=== PATIENT | female | born 1985 | race Caucasian/White ===

== ENCOUNTER 2018-06-03 11:58 | Emergency (ER) | payer OTHER | END 2018-06-03 14:11 | disposition home or self-care (01) | LOC: M ED 11:58 | DX: S90.31XA Contusion of right foot, initial encounter (principal); S93.401A Sprain of unspecified ligament of right ankle, initial encounter; W10.8XXA Fall (on) (from) other stairs and steps, initial encounter; Y92.89 Other specified places as the place of occurrence of the external cause; Z88.2 Allergy status to sulfonamides; Z88.7 Allergy status to serum and vaccine | CPT/HCPCS: 73610 ==

== ENCOUNTER → 2019-01-13 | Outpatient (REF) | payer OTHER ==
[~2019-01-13] MED LIST: ASPI-255 PO
[2019-01-13 11:19] LABS: BASO % 0.4 % (0.0-1.0); EOS # 0.2 10^3/uL (0.0-0.50); EOS % 1.7 % (0.0-3.0); HEMATOCRIT 44.5 % (36.0-47.0); HEMOGLOBIN 13.9 g/dl (12.0-15.5); LYMPH # 2.9 10^3/uL (1.5-4.5); LYMPH % 26.4 % (24.0-44.0); MEAN CORPUSCULAR HEMOGLOBIN 26.3 pg (27.0-33.0); MEAN CORPUSCULAR HGB CONC 31.2 g/dl (32.0-36.5); MEAN CORPUSCULAR VOLUME 84.1 fl (80.0-96.0); MONO # 0.7 10^3/uL (0.0-0.8); MONO % 6.5 % (0.0-5.0); NEUTROPHILS % 64.4 % (36.0-66.0); PLATELET COUNT, AUTOMATED 432 10^3/uL (150-450); RED BLOOD COUNT 5.29 10^6/uL (4.00-5.40); WHITE BLOOD COUNT 10.9 10^3/uL (4.0-10.0)
[2019-01-13 11:49] LABS: FREE T4 1.04 NG/DL (0.76-1.46); THYROID STIMULATING HORMONE 2.62 uIU/ML (0.358-3.740)
[2019-01-13 11:51] LABS: ERYTHROCYTE SEDIMENTATION RATE 24 mm/hr (0-20)
[2019-01-14 15:03] LABS: ANTINUCLEAR ANTIBODIES DIRECT Negative (Negative)
== END ==
LOC: M SFHCLERA 09:14
PROVIDERS: ATTEND Nurse Practitioner Family
DX: R21 Rash and other nonspecific skin eruption (principal); R53.82 Chronic fatigue, unspecified

== ENCOUNTER → 2019-01-22 | Outpatient (REF) | payer OTHER ==
[2019-01-22 11:21] LABS: ALBUMIN 3.5 GM/DL (3.2-5.2); ALT/SGPT 21 U/L (12-78); BILIRUBIN,TOTAL 0.7 MG/DL (0.2-1.0); BLOOD UREA NITROGEN 16 MG/DL (7-18); CALCIUM LEVEL 8.8 MG/DL (8.5-10.1); CARBON DIOXIDE LEVEL 27 MEQ/L (21-32); CHLORIDE LEVEL 106 MEQ/L (98-107); CREATININE FOR GFR 0.81 MG/DL (0.55-1.30); GLOMERULAR FILTRATION RATE > 60.0 (>60); GLUCOSE, FASTING 82 MG/DL (70-100); POTASSIUM SERUM 4.3 MEQ/L (3.5-5.1); RHEUMATOID FACTOR QUANT < 10.0 IU/ML (<15.0); SODIUM LEVEL 140 MEQ/L (136-145); TOTAL PROTEIN 7.2 GM/DL (6.4-8.2)
[2019-01-25 00:07] LABS: ANTI RIBOSOMAL ANTIBODIES <0.2 AI (0.0-0.9); CYCLIC CITRULLINATED PEPTIDE 6 units (0-19)
== END ==
LOC: M SFHCLERA 08:17
PROVIDERS: ATTEND Nurse Practitioner Family
DX: M25.541 Pain in joints of right hand (principal)

== ENCOUNTER → 2019-04-08 | Outpatient (REF) | payer OTHER ==
[2019-04-08 15:54] LABS: BASO # 0.1 10^3/uL (0.0-0.2); BASO % 0.5 % (0.0-1.0); EOS # 0.4 10^3/uL (0.0-0.50); EOS % 3.1 % (0.0-3.0); HEMATOCRIT 41.4 % (36.0-47.0); HEMOGLOBIN 13.4 g/dl (12.0-15.5); LYMPH # 2.4 10^3/uL (1.5-4.5); LYMPH % 18.3 % (24.0-44.0); MEAN CORPUSCULAR HGB CONC 32.4 g/dl (32.0-36.5); MEAN CORPUSCULAR VOLUME 86.4 fl (80.0-96.0); MONO # 0.9 10^3/uL (0.0-0.8); MONO % 7.2 % (0.0-5.0); NEUTROPHILS # 9.2 10^3/uL (1.8-7.7); NEUTROPHILS % 70.4 % (36.0-66.0); PLATELET COUNT, AUTOMATED 418 10^3/uL (150-450); RED BLOOD COUNT 4.79 10^6/uL (4.00-5.40); WHITE BLOOD COUNT 13.1 10^3/uL (4.0-10.0)
[2019-04-08 15:59] LABS: ALBUMIN 3.8 GM/DL (3.2-5.2); ALT/SGPT 23 U/L (12-78); BILIRUBIN,TOTAL 0.4 MG/DL (0.2-1.0); BLOOD UREA NITROGEN 16 MG/DL (7-18); C REACTIVE PROTEIN QUANTITATIV 2.02 MG/DL (0.00-0.30); CALCIUM LEVEL 9.3 MG/DL (8.5-10.1); CARBON DIOXIDE LEVEL 31 MEQ/L (21-32); CHLORIDE LEVEL 107 MEQ/L (98-107); COMPLEMENT C3 147 MG/DL (90-180); COMPLEMENT C4 30 MG/DL (10-40); CREATININE FOR GFR 0.91 MG/DL (0.55-1.30); GLOMERULAR FILTRATION RATE > 60.0 (>60); GLUCOSE, FASTING 75 MG/DL (70-100); SODIUM LEVEL 143 MEQ/L (136-145); TOTAL PROTEIN 7.6 GM/DL (6.4-8.2)
[2019-04-08 16:00] LABS: APPEARANCE, URINE HAZY (CLEAR); BACTERIA, URINE AUTO 1+ (NEGATIVE); BILIRUBIN, URINE AUTO NEGATIVE (NEGATIVE); BLOOD, URINE BLOOD 1+ (NEGATIVE); COLOR, URINE YELLOW (YELLOW); GLUCOSE, URINE (UA) AUTO NEGATIVE (NEGATIVE); KETONE, URINE AUTO NEGATIVE (NEGATIVE); LEUKOCYTE ESTERASE, URINE AUTO TRACE (NEGATIVE); MONO REFLEX EBV COMP NEGATIVE (NEGATIVE); MUCUS, URINE SMALL (NEGATIVE); NITRITE, URINE AUTO NEGATIVE (NEGATIVE); PROTEIN, URINE AUTO NEGATIVE (NEGATIVE); RBC, URINE AUTO 5 /HPF (0-3); SPECIFIC GRAVITY URINE AUTO 1.024 (1.002-1.035); SQUAMOUS EPITHELIAL CELL UR AU 5 /HPF (0-6); UROBILINOGEN, URINE AUTO 0.2 mg/dL (0.0-2.0); WBC, URINE AUTO 4 /HPF (0-3)
[2019-04-08 16:12] LABS: ERYTHROCYTE SEDIMENTATION RATE 25 mm/hr (0-20)
[2019-04-08 16:19] LABS: TOTAL PROTEIN,RANDOM URINE 16.5 MG/DL (0.0-12.0)
[2019-04-09 09:26] LABS: HIV 1&2 SCREEN CENTAUR NEGATIVE (NEGATIVE)
[2019-04-11 00:06] LABS: EBV VIRAL CAPSID AG IgM 54.5 U/mL (0.0-35.9)
[2019-04-14 14:36] LABS: ANA (HEP2) Negative (.); ANTI DS-DNA AB <1:10 titer (.); RNP ANTIBODY > 8.0 AI (0.0-0.9); SMITHS ANTIBODY < 0.2 AI (0.0-0.9); SSA SJOGRENS A <0.2 AI (0.0-0.9); SSB SJOGRENS B <0.2 AI (0.0-0.9)
== END ==
LOC: M SFHCPLAZ 13:33
PROVIDERS: ATTEND Internal Medicine Rheumatology
DX: M25.50 Pain in unspecified joint (principal); R53.82 Chronic fatigue, unspecified

== ENCOUNTER → 2019-08-13 | Outpatient (CLI) | payer OTHER | LOC: M LRY 08:29 | PROVIDERS: ATTEND Internal Medicine | DX: R19.5 Other fecal abnormalities (principal) ==

== ENCOUNTER → 2019-08-20 | Outpatient (CLI) | payer OTHER ==
--- NOTE | 2019-08-20 09:10 | PFTRPT ---
Site: [facility], [address] [place] [address], [id number] ID: [id number] Name: SANTA SOLARES Visit Date: 08/20/2019 Second ID: [id number] Referring Doctor: Russel Keita MD Reviewing Doctor: Daljit Barba MD Change Lead: Reina Maddox Age: 34 : 1985 Sex: Female Race: Height: 63.00 Inches Weight: 220.00 Lbs BSA: 2.01 Order IDs: [id number] Requested Test(s): <RESP-PFT.DLCO> Diagnosis: M32.19 test meet the ATS standards for acceptability and repeatability. Pt was given four puffs of albuterol for postbronchodilator. Review Status: Not Reviewed Pre-Bronch Post-Bronch Pred Actual %Pred Actual %Chng SPIROMETRY FVC (L) 3.63 2.84 78 2.86 FEV1 (L) 3.03 2.41 79 2.49 3 FEV1/FVC (%) 84 85 100 87 2 FEF 25% (L/sec) 5.50 4.31 78 5.12 18 FEF 50% (L/sec) 4.38 3.78 86 3.97 5 FEF 75% (L/sec) 1.81 1.18 65 1.42 19 FEF 25-75% (L/sec) 3.27 2.80 85 3.13 11 FEF Max (L/sec) 6.86 4.88 71 5.12 4 FIVC (L) 3.01 3.00 FIF 50% (L/sec) 4.25 3.85 90 3.25 -15 FIF Max (L/sec) 3.85 3.52 -8 MVV (L/min) 104 78 75 Expiratory Time (sec) 6.92 6.86 Back Extrap Vol (L) 0.24 0.15 -39 Time To FEFmax (sec) 0.200 0.154 -22 LUNG VOLUMES SVC (L) 3.48 3.14 90 IC (L) 2.22 2.51 113 ERV (L) 1.26 0.63 49 TGV (L) 2.68 1.37 51 RV (Pleth) (L) 1.42 0.74 52 TLC (Pleth) (L) 4.90 3.88 79 RV/TLC (Pleth) (%) 29 19 65 DIFFUSION DLCOunc (ml/min/mmHg) 24.10 24.42 101 DLCOcor (ml/min/mmHg) 24.10 24.27 100 DL/VA (ml/min/mmHg/L) 4.92 6.52 132 VA (L) 4.90 3.72 76 BHT (sec) 9.64 IVC (L) 2.78 TLC (SB) (L) 3.87 AIRWAYS RESISTANCE Raw (cmH2O/L/s) 1.86 3.25 174 Gaw (L/s/cmH2O) 1.03 0.32 30 sRaw (cmH2O*s) 4.76 4.87 102 sGaw (1/cmH2O*s) 0.20 0.21 104 BLOOD GASES Hgb (gm/dL) 13.6
== END ==
LOC: M CARPUL 08:27
PROVIDERS: ATTEND Internal Medicine
DX: M32.19 Other organ or system involvement in systemic lupus erythematosus (principal)

== ENCOUNTER → 2020-08-24 | Outpatient (CLI) | payer OTHER | LOC: M LAB 10:00 | PROVIDERS: ATTEND Physician Assistant | DX: R70.0 Elevated erythrocyte sedimentation rate (principal) ==

== ENCOUNTER → 2023-01-15 | Outpatient (REF) | payer OTHER ==
[2023-01-15 13:34] LABS: HCG, SERUM QUALITATIVE NEGATIVE (NEGATIVE)
== END ==
LOC: M LAB REF 12:20
PROVIDERS: ATTEND Internal Medicine
DX: Z79.899 Other long term (current) drug therapy (principal)

== ENCOUNTER → 2024-04-17 | Outpatient (CLI) | payer OTHER ==
[~2024-04-17] VITALS: Ht 160 cm; Wt 121.0 kg
[~2024-04-17] MED LIST changes: +ALBUTEROL SULFATE 2.5MG/0.5ML INH NEB SOLN INH PRN; +EPINEPHrine INJ 1 MG/ML 1ML AMP IM PRN; +NS 1,000 ML IV SCH; +diphenhydrAMINE 50MG/ML VIAL IV PRN; +methylPREDNISolone 125MG 2ML VIAL IV PRN
[2024-04-17 11:35] VITALS: BP 147/79; O2SAT 99
[2024-04-17] MEDS: FERRIC CARBOXYMALTOSE INJ 750 MG in NS 250 ML (>50kg) IV ONE (11:44)
[2024-04-17 12:55] VITALS: BP 119/64; O2SAT 99
== END ==
LOC: M INFU 11:00
PROVIDERS: ATTEND Internal Medicine
DX: D50.9 Iron deficiency anemia, unspecified (principal); Z88.2 Allergy status to sulfonamides; Z88.7 Allergy status to serum and vaccine
CPT/HCPCS: 96365; J1439

== ENCOUNTER 2024-04-24 11:30 | Outpatient (CLI) | payer OTHER ==
[~2024-04-24] VITALS: Ht 160 cm; Wt 121.0 kg
[2024-04-24 11:30] VITALS: BP 130/63; O2SAT 100
[2024-04-24] MEDS: FERRIC CARBOXYMALTOSE INJ 750 MG in NS 250 ML (>50kg) IV ONE (11:37)
[2024-04-24 12:45] VITALS: BP 112/63; O2SAT 96
== END 2024-04-24 12:50 ==
LOC: M INFU 11:30
PROVIDERS: ATTEND Internal Medicine
DX: D50.9 Iron deficiency anemia, unspecified (principal); Z88.2 Allergy status to sulfonamides; Z88.7 Allergy status to serum and vaccine
CPT/HCPCS: 96365; J1439

== ENCOUNTER → 2024-06-26 | Outpatient (REF) | payer OTHER ==
[~2024-06-26] MED LIST changes: -ALBUTEROL SULFATE 2.5MG/0.5ML INH NEB SOLN INH PRN; -EPINEPHrine INJ 1 MG/ML 1ML AMP IM PRN; -NS 1,000 ML IV SCH; -diphenhydrAMINE 50MG/ML VIAL IV PRN; -methylPREDNISolone 125MG 2ML VIAL IV PRN
[2024-06-26 13:12] LABS: FERRITIN 165.2 NG/ML (7.3-270.7)
[2024-06-26 13:17] LABS: C REACTIVE PROTEIN QUANTITATIV 2.8 MG/DL (<1.0)
== END ==
LOC: M LAB REF 11:38
PROVIDERS: ATTEND Internal Medicine
DX: Z00.00 Encounter for general adult medical examination without abnormal findings (principal); D50.9 Iron deficiency anemia, unspecified; M32.9 Systemic lupus erythematosus, unspecified

== ENCOUNTER → 2024-12-22 | Outpatient (REF) | payer OTHER ==
[2024-12-22 13:45] LABS: PERCENT SATURATION 19.1 % (13.2-45.0)
[2024-12-22 13:47] LABS: FERRITIN 94.5 NG/ML (7.3-270.7)
== END ==
LOC: M LAB REF 12:23
PROVIDERS: ATTEND Internal Medicine
DX: D50.9 Iron deficiency anemia, unspecified (principal)

== ENCOUNTER → 2025-02-03 | Outpatient (CLI) | payer OTHER | LOC: M CARPUL 10:09 | PROVIDERS: ATTEND Physician Assistant | DX: I27.20 Pulmonary hypertension, unspecified (principal) ==

== ENCOUNTER → 2025-06-24 | Outpatient (REF) | payer OTHER ==
[2025-06-24 14:05] LABS: IRON (FE) 43.0 UG/DL (50-170); PERCENT SATURATION 17.1 % (13.2-45.0)
== END ==
LOC: M LAB REF 11:51
PROVIDERS: ATTEND Internal Medicine
DX: D50.9 Iron deficiency anemia, unspecified (principal)

== ENCOUNTER → 2025-08-19 | Outpatient (CLI) | payer OTHER | LOC: M LAB 07:59 | PROVIDERS: ATTEND Internal Medicine | DX: L68.0 Hirsutism (principal) ==